=== PATIENT | female | born 1955 | race Caucasian/White ===

== ENCOUNTER 2022-11-27 08:00 | Outpatient (OUT) | payer MEDICARE, BC, SELFPAY ==
[2022-11-27 10:23] LABS: Basophils Absolute Auto 0.1 10^3/uL (0.0-0.1); Basophils Percent Auto 1.1 % (0.2-2.0); Eosinophils Absolute Auto 0.2 10^3/uL (0.0-0.7); Eosinophils Percent Auto 3.3 % (0.9-7.0); Hemoglobin 12.1 g/dL (12.0-16.0); Lymphocytes Absolute Auto 2.1 10^3/uL (1.2-3.8); Lymphocytes Percent Auto 46.9 % (20.5-60.0); Mean Corpuscular Hemoglobin 22.3 pg (26.7-34.0); Mean Platelet Volume 9.8 fL (9.5-13.5); Monocytes Absolute Auto 0.4 10^3/uL (0.3-0.8); Monocytes Percent Auto 8.2 % (1.7-12.0); Neutrophils Absolute Auto 1.8 10^3/uL (1.4-6.5); Neutrophils Percent Auto 40.5 % (43.0-75.0); Platelet Count 229 10^3/uL (150-450); Red Blood Count 5.42 10^6/uL (4.20-5.40); Red Cell Distribution Width 15.5 % (11.0-15.0); White Blood Count 4.5 10^3/uL (4.0-11.0)
[2022-11-27 11:37] LABS: Free T4 0.97 ng/dL (0.76-1.46)
[2022-11-27 11:38] LABS: Alanine Aminotransferase 24 U/L (14-59); Albumin Globulin Ratio 1.4; Albumin Level 4.2 g/dL (3.4-5.0); Alkaline Phosphatase 59 U/L (46-116); Anion Gap 10.6; Aspartate Amino Transferase 15 U/L (15-37); BUN Creatinine Ratio 26.6; Bilirubin Total 0.6 mg/dL (0.2-1.0); Calcium 9.1 mg/dL (8.5-10.1); Carbon Dioxide 27.6 mmol/L (21.0-32.0); Chloride 106 mmol/L (98-107); Chol HDL Ratio 2.2; Cholesterol 171 mg/dL (<=200); Estimated GFR (African America >60 (>=60); Estimated GFR (Non-African Ame 59 (>=60); Free T3 2.37 pg/mL (2.18-3.98); Globulin 3.1 g/dL; Glucose 96 mg/dL (74-106); HDL Cholesterol 77 mg/dL (40-60); Phosphorus 3.7 mg/dL (2.6-4.7); Potassium 4.2 mmol/L (3.5-5.1); Sodium 140 mmol/L (136-145); Thyroid Stimulating Hormone 1.662 uIU/mL (0.358-3.740); Total Protein 7.3 g/dL (6.4-8.2); Triglycerides 72 mg/dL (<=150); VLDL CHOLESTEROL 14.4 mg/dL
== END 2022-11-27 08:12 ==
DX: R00.2 Palpitations (principal); I34.1 Nonrheumatic mitral (valve) prolapse; R06.02 Shortness of breath; E78.2 Mixed hyperlipidemia
CPT/HCPCS: 36415; 80053; 80061; 83735; 84100; 84439; 84443; 84481; 85025

== ENCOUNTER 2024-03-14 15:09 | Outpatient (OUT) | payer MEDICARE, BC, SELFPAY | END 2024-03-14 15:10 | disposition home or self-care (01) | LOC: PST 15:10 | PROVIDERS: Visit Provider Surgery | DX: Z01.818 Encounter for other preprocedural examination (principal); Z12.11 Encounter for screening for malignant neoplasm of colon ==

== ENCOUNTER 2024-03-29 08:47 | Day surgery (SDC) | payer MEDICARE, BC, SELFPAY ==
--- NOTE | 2024-03-29 | OP_ITS ---
OPERATION DATE: 03/29/2024 PREOPERATIVE DIAGNOSIS: Colorectal screening. POSTOPERATIVE DIAGNOSIS: Redundant colon with spasm. PROCEDURE: Colonoscopy to cecum. SURGEON: Magdaleno Vang M.D. ANESTHESIA: Monitored anesthesia care. ESTIMATED BLOOD LOSS: Zero. INDICATIONS AND CONSENT: Patient is a 68-year-old female presents for colorectal screening. Indications, risks, benefits, alternatives of proceeding with colonoscopy were explained extensively to the patient, including the risks of bleeding, colon perforation or anesthetic complications. All of her questions were answered. Informed consent was obtained. PROCEDURE: Patient brought to the operating room, placed in the left lateral decubitus position. Monitored anesthesia care was provided. Rectal exam was performed which showed no masses or blood. Scope was inserted into the anal canal. Under direct visualization was advanced. With the aid of abdominal compression, it was able to be advanced to the cecum where cecal markings were clearly identified. There was noted to be redundancy, looping of the colon in the sigmoid. There was noted to be a good prep. Upon withdrawal of the scope, mucosal surfaces were carefully examined. There were no mass lesions or polyps. No inflammatory changes or ulcerations. No significant diverticulosis. The scope was retroflexed in the anal canal. There was no significant hemorrhoidal disease. Scope was then withdrawn. Patient tolerated procedure well, was sent to recovery room in good condition. Follow up colonoscopy for screening should be in 10 years, if patient is in good health. CC: Maryjo Akhtar
[2024-03-29 08:55] VITALS: BP 129/86; PULSE 84; TEMP 36.3; O2SAT 97; BMI 29.4
--- OUTSIDE RECORDS SUMMARY | 2024-03-29 09:00 | XMS_ITS | CCD ---
Author Organization [facility] Care Team Providers Care Ship'S Pilot Name Role Phone MISC, DR BENAVIDES Primary Care Unavailable REQUEST, DR NONE LISTED Attending Unavaila ble REQUEST, NONE LISTED Consulting Unavaila ble REQUEST, NONE LISTED Admitting Unavaila ble MISC, DOCTOR Attending Unavailable MISC, DR BENAVIDES Consulting Unavailable MISC, DR BENAVIDES Primary Care Unavailable MISC, DOCTOR Admitting Unavailable MISC, DR BENAVIDES Consulting Unavailable MISC, DR BENAVIDES Primary Care Unavailable MISC, DR BENAVIDES Admitting Unavailable MISC, DOCTOR Attending Unavailable GALLAGHER, AIME Isha Attending Unavailable GALLAGHER, AIME L Referring Unavailable GALLAGHER, AIME L Primary Care Unavailable TRELL CASTELLANOS Attending Unavailable GALLAGHER, AIME L Referring Unavailable GALLAGHER, AIME L Primary Care Unavailable WESLY, SHAHAB D Attending Unavailable GALLAGHER, AIME L Referring Unavailable GALLAGHER, AIME L Primary Care Unavailable WESLY, SHAHAB D Referring Unavailable GALLAGHER, AIME L Primary Care Unavailable GALLAGHER, AIME L Referring Unavailable GALLAGHER, AIME L Primary Care Unavailable WESLY, SHAHAB D Attending Unavailable WESLY, SHAHAB D Referring Unavailable GALLAGHER, AIME L Primary Care Unavailable GALLAGHER, AIME Referring Unavailable GALLAGHER, AIME Primary Care Unavailable Magdaleno FIORE Attending Unavailable GALLAGHER, AIME Primary Care Unavailable GALLAGHER, AIME L Primary Care Physician [phone] Allergies Allergy Classification Reported Allergen(s) Allergy Type Date of Onset Reaction(s) Facility (2 sources) Codeine; Translations: [CODEINE] Drug Allergy 6 [facility]ository (1 source) No Known Medication Allergies; Translations: [No Known Medication Allergies] Propensity to adverse reactions (disorder) [facility] Repository Medications Current Medications Medication Drug Class(es) Dates Sig (Normalized) Sig (Original) atorvastatin 20 mg oral tablet (1 source) HMG-CoA Reductase Inhibitor Start: 02-24-2024 take 1 tablet by mouth once daily Lipitor 20 mg Tab 20 mg = 1 tab(s), Oral, Daily, Refills(s) 0 Start Date: 02/24/24 Status: Ordered Co Q-10 100 mg oral capsule (1 source) Start: 02-24-2024 take 1 capsule by mouth once daily Co Q-10 100 mg oral capsule 100 mg = 1 cap(s), Oral, Daily, Refills(s) 0 Start Date: 02/24/24 Status: Ordered Multi Vitamin+ (1 source) Start: 02-24-2024 take 1 tablet by mouth once daily Multi Vitamin+ 1 tab(s), Oral, Daily, Refill(s) 0 Start Date: 02/24/24 Status: Ordered Problems Problem Classification Problem Date Documented Da te Episodic/Chronic Cardiac dysrhythmias (2 sources) Palpitations; Translations: [Palpitations] Onset: 09-16-2018 Episodic Diabetes mellitus without complication (1 source) Hyperglycemia, unspecified; Translations: [HYPERGLYCEMIA UNSPECIFIED] Onset: 12-08-2021 Episodic Disorders of lipid metabolism (8 sources) Other hyperlipidemia; Translations: [Mixed hyperlipidemia] Onset: 03-24-2016 Chronic Heart valve disorders (2 sources) Nonrheumatic aortic (valve) stenosis; Translations: [Non-rheumatic mitral valve prolapse] Onset: 03-24-2016 02-24-2024 Chronic Malaise and fatigue (1 source) Other fatigue; Translations: [Other fatigue] Onset: 12-23-2023 Episodic Other bone disease and musculoskeletal deformities (2 sources) Other specified disorders of bone density and structure, unspecified site; Translations: [Other specified disorders of bone density and structure, unspecified site] Onset: 01-06-2024 Episodic Other bone disease and musculoskeletal deformities (1 source) Osteopenia 02-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 Other lower respiratory disease (4 sources) Shortness of breath; Translations: [SHORTNESS OF BREATH] Onset: 12-11-2021 Episodic Other lower respiratory disease (1 source) Shortness of breath Onset: 12-23-2023 Episodic Other nutritional; endocrine; and metabolic disorders (1 source) Body mass index 30+ - obesity 02-29-2024 Chronic Other nutritional; endocrine; and metabolic disorders (1 source) 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 Other screening for suspected conditions (not mental disorders or infectious disease) (5 sources) Encounter for screening for osteoporosis; Translations: [Encounter for screening for malignant neoplasm of colon] Onset: 11-26-2023 Episodic Other skin disorders (1 source) Melanosis 02-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 Residual codes; unclassified (1 source) Other specified postprocedural states; Translations: [OTH SPECIFIED POSTPROCEDURAL STATES] Onset: 12-16-2021 Episodic Residual codes; unclassified (2 sources) Asymptomatic menopausal state; Translations: [Asymptomatic menopausal state] Onset: 01-06-2024 Episodic Unclassified (1 source) Annual Exam Onset: 01-06-2024 Unclassified (1 source) Patient encounter status 02-29-2024 Results Test Name Value Interpretation Reference Range Facility DEXA SCAN CENTRAL SKELETALon 02-15-2024 DEXA SCAN CENTRAL SKELETAL DEXA SCAN CENTRAL SKELETAL Bone densitometry: HISTORY: Postmenopausal osteoporosis screening. L1-L4 T score is -1.2 and 0.2. Left neck T score is -0.4 and Z score is 1.0. Right 4 T score is -0.5 and Z score 0.9. 10 year probability of osteoporotic fractures 7.6%. 10 year probability of hip fracture 0.5%. Procedure: Bone density scan was performed in the regions indicated in the accompanying documents. Bone mineral density values for each site expressed in grams per square centimeter and shown on accompanying graphs and tables. These values are compared to the World Health Organization standards that state that bone mineral density values at or below -2.5 standard deviations (T score -2.5) standard deviations from a young adult ethnicity-matched population are indicative of osteoporosis, and bone mineral density values at or below -1.0 standard deviations (T score -1.0) from a young adult ethnicity-matched population are indicative of osteopenia. The comparison of this patient's values to the world health organization standards is given in the impression. When possible, this study has been compared to any prior DEXA study. Full color report will be mailed separately. Impression: 1. Osteopenia. The exam is considered to be osteopenic by the National Osteoporosis Foundation guidelines. Recommend consideration for initiation of therapy. The current National Osteoporosis Foundation guide recommends treating patients with FRAX ten year risk scores of greater than or equal to 3% for hip fracture or greater than or equal to 20% for major osteoporotic fracture, to reduce their fracture risk. Finalized by Jayesh Day MD on 02/15/2024 10:[address] [facility] CBC AND AUTO DIFFon 01-25-20 24 ABSOLUTE BASOPHIL 0.1 X10E9/L Normal 0.0-0.2 [facility] Comment on above: Performed By: #### C ANGELINA CMP, 81963-9, 3016-3 #### [facility] ([id number]) [address], [address] [place] [address] ABSOLUTE NEUTROPHIL 1.2 X10E9/L Low 1.5-6.6 [facility] Comment on above: Performed By: #### Keanu ALFARO CMP, 72801-1, 6-3 #### [facility] ([id number]) [address], [address] [place] [address] Basophils/100 WBC (Bld) 1.3 % Normal [facility] Comment on above: Performed By: #### C ANGELINA CMP, 80056-0, 6-3 #### [facility] ([id number]) [address], [address] [place] [address] Eosinophils (Bld) [#/Vol] 0.1 10*3/uL Normal 0.0-0.[address] [facility] Comment on above: Performed By: #### C ANGELINA CMP, 29457-7, 6-3 #### [facility] ([id number]) [address], [address] [place] [address] Eosinophils/100 WBC (Bld) 3.0 % Normal [facility] Comment on above: Performed By: #### C ANGELINA CMP, 03650-3, 6-3 #### [facility] ([id number]) [address], [address] [place] [address] Erythrocyte distribution width (RBC) [Ratio] 15.6 % High 11.5-15.[address] [facility] Comment on above: Performed By: #### Keanu ALFARO [facility], 96434-9, 3015-3 #### [facility] ([id number]) [address], [address] [place] [address] Hematocrit (Bld) [Volume fraction] 39.4 % Normal 35-[address] [facility] Comment on above: Performed By: #### Keanu ALFARO [facility], 72609-0, 3015-3 #### [facility] ([id number]) [address], [address] [place] [address] Hemoglobin (Bld) [Mass/Vol] 12.3 g/dL Normal 11.7-15.[address] [facility] Comment on above: Performed By: #### Keanu ALFARO CMP, 90131-1, 3015-3 #### [facility] ([id number]) [address], [address] [place] [address] HYPOCHROMIA 2+ Abnormal NONE [facility] Comment on above: Performed By: #### Keanu ALFARO [facility], , 3015-3 #### [facility] ([id number]) [address] [place] [address] Lymphocytes (Bld) [#/Vol] 2.2 10*3/uL Normal 1.0-3.[address] [facility] Comment on above: Performed By: #### Keanu ALFARO CMP, 36273-0, 3015-3 #### [facility] ([id number]) [address], [address] [place] [address] Lymphocytes/100 WBC (Bld) 56.3 % Normal [facility] Comment on above: Performed By: #### Keanu ALFARO CMP, 96889-4, 3015-3 #### [facility] ([id number]) [address], [address] [place] [address] MCH (RBC) [Entitic mass] 22.1 pg Low 27-[address] [facility] Comment on above: Performed By: #### C BRITANY ALFARO, , 3015- #### [facility] ([id number]) [address], [address] [place] [address] MCHC (RBC) [Mass/Vol] 31.3 g/dL Low 32-36 [facility] Comment on above: Performed By: #### C ANGELINA CMP, , 3015-3 #### [facility] ([id number]) [address] [place] [address] MCV (RBC) [Entitic vol] 71 fL Low 80-[address] [facility] Comment on above: Performed By: #### Keanu ALFARO CMP, , 3015-07 #### [facility] ([id number]) [address], [address] [place] [address] Monocytes (Bld) [#/Vol] 0.4 10*3/uL Normal 0-0.[address] [facility] Comment on above: Performed By: #### Keanu ALFARO CMP, , 3015- #### [facility] ([id number]) [address] [place] [address] Monocytes/100 WBC (Bld) 9.1 % Normal [facility] Comment on above: Performed By: #### Keanu ALFARO CMP, , 3015- #### [facility] ([id number]) [address] [place] [address] Neutrophils/100 WBC (Bld) 30.3 % Normal [facility] Comment on above: Performed By: #### C ANGELINA CMP, , 3 #### [facility] ([id number]) [address] [place] [address] Platelet mean volume (Bld) [Entitic vol] 9.1 fL Normal 7-[address] [facility] Comment on above: Performed By: #### C BCA, CMP, 54946-4, 3016-3 #### [facility] ([id number]) [address] [place] [address] Platelets (Bld) [#/Vol] 221 10*3/uL Normal 150-[address] [facility] Comment on above: Performed By: #### C BCA, CMP, 26490-5, 6-3 #### [facility] ([id number]) [address] [place] [address] RBC COUNT 5.58 X10E12/L High 3.80-5.[address] [facility] Comment on above: Performed By: #### C BCA, CMP, 51600-3, 6-3 #### [facility] ([id number]) [address] [place] [address] WBC (Bld) [#/Vol] 3.9 10*3/uL Low 4.0-11.0 [facility] Comment on above: Performed By: #### C BCA, CMP, 35459-9, 3015-3 #### [facility] ([id number]) [address] [place] [address] COMPREHENSIVE METABOLIC PANE Aly 01-25-2024 Albumin [Mass/Vol] 4.5 g/dL Normal 3.2-5.3 [facility] Comment on above: Performed By: #### C BCA, CMP, 72853-2, 6-3 #### [facility] ([id number]) [address], [address] [place] [address] ALP [Catalytic activity/Vol] 56 U/L Normal 39-[address] [facility] Comment on above: Performed By: #### C BCA, CMP, 94347-6, 3016-3 #### [facility] ([id number]) [address], [address] [place] [address] ALT [Catalytic activity/Vol] 20 U/L Normal 0-[address] [facility] Comment on above: Performed By: #### C BCA, CMP, 24362-1, 3016-3 #### [facility] ([id number]) [address] [place] [address] Anion gap [Moles/Vol] 12 mmol/L Normal 5-15 [facility] Comment on above: Performed By: #### C BCA, CMP, 82125-8, 6-3 #### [facility] ([id number]) [address] [place] [address] AST [Catalytic activity/Vol] 24 U/L Normal 0-[address] [facility] Comment on above: Performed By: #### C BCA, CMP, 72384-3, 6-3 #### [facility] ([id number]) [address] [place] [address] Bilirubin [Mass/Vol] 0.8 mg/dL Normal 0.3-1.2 [facility] Comment on above: Performed By: #### C BCA, CMP, 93291-5, 6-3 #### [facility] ([id number]) [address] [place] [address] Calcium [Mass/Vol] 10.3 mg/dL Normal 8.5-10.5 [facility] Comment on above: Performed By: #### C BCA, CMP, 16935-3, 6-3 #### [facility] ([id number]) [address] [place] [address] Chloride [Moles/Vol] 104 mmol/L Normal 98-109 [facility] Comment on above: Performed By: #### C BCA, CMP, 88072-0, 6-3 #### [facility] ([id number]) [address] [place] [address] CO2 [Moles/Vol] 25 mmol/L Normal 22-[address] [facility] Comment on above: Performed By: #### C BRITANY ALFARO, 27869-5, 3015-3 #### [facility] ([id number]) [address], [facility] [address] [place] [address] Creatinine [Mass/Vol] 1.10 mg/dL High 0.40-1.00 [facility] Comment on above: Result Comment: METH OD TRACEABLE TO IDMS STANDARD Performed By: #### C BRITANY ALFARO, 05815-4, 3015-3 #### [facility] ([id number]) [address] [address] [place] [address] GFR/1.73 sq M.predicted among non-blacks MDRD (S/P/Bld) [Vol rate/Area] 54 mL/min/{1.73_m2} Low >[address] [facility] Comment on above: Result Comment: Reported eGFR is based on the CKD-EPI 2020 equation that does not use a race coefficient. Performed By: #### C BRITANY ALFARO, 59324-6, 3015-3 #### [facility] ([id number]) [address] [address] [place] [address] Glucose [Mass/Vol] 87 mg/dL Normal 65-99 [facility] Comment on above: Performed By: #### C BRITANY ALFARO, 79057-2, 3015-3 #### [facility] ([id number]) [address] [address] [place] [address] Potassium [Moles/Vol] 4.4 mmol/L Normal 3.5-5.0 [facility] Comment on above: Performed By: #### C BRITANY ALFARO, 30199-6, 3015-3 #### [facility] ([id number]) [address] [address] [place] [address] Protein [Mass/Vol] 7.2 g/dL Normal 6.0-8.0 [facility] Comment on above: Performed By: #### C ANGELINA, CMP, 29141-1, 3016-3 #### [facility] ([id number]) [address] [place] [address] Sodium [Moles/Vol] 141 mmol/L Normal 134-146 [facility] Comment on above: Performed By: #### Keanu ALFARO, CMP, 36576-9, 6-3 #### [facility] ([id number]) [address] [place] [address] Urea nitrogen [Mass/Vol] 22 mg/dL Normal 5-[address] [facility] Comment on above: Performed By: #### Keanu ALFARO, CMP, 59848-3, 3016-3 #### [facility] ([id number]) [address] [place] [address] Lipid 1996 panelon 4 Cholesterol [Mass/Vol] 177 mg/dL Normal 150-[address] [facility] Comment on above: Performed By: #### Keanu ALFARO CMP, 43773-9, 3016-3 #### [facility] ([id number]) [address] [place] [address] Cholesterol in HDL [Mass/Vol] 68 mg/dL Normal >[address] [facility] Comment on above: Result Comment: HDL <40 mg/dL - High Risk HDL > or = 40mg/dL- Desirable HDL >60 mg/dL - Negative Risk Performed By: #### C BCA, CMP, 37726-9, 6-3 #### [facility] ([id number]) [address] [place] [address] Cholesterol in LDL [Mass/Vol] 92 mg/dL Normal <[address] [facility] Comment on above: Result Comment: LDL <100 mg/dL - Desirable LDL >160 mg/dL - High Risk Performed By: #### C ANGELINA, CMP, 55920-0, 3016-3 #### [facility] ([id number]) [address] [place] [address] Cholesterol in VLDL [Mass/Vol] 17 mg/dL Normal 0-[address] [facility] Comment on above: Performed By: #### Keanu ALFARO, CMP, 06306-9, 3016-3 #### [facility] ([id number]) [address] [place] [address] CHOLESTEROL:HDL 2.6 Normal 1.0-5.[address] [facility] Comment on above: Performed By: #### Keanu ALFARO, CMP, 96605-2, 3016-3 #### [facility] ([id number]) [address] [place] [address] Triglyceride [Mass/Vol] 83 mg/dL Normal 27-[address] [facility] Comment on above: Performed By: #### Keanu ALFARO, CMP, 84698-8, 3016-3 #### [facility] ([id number]) [address] [place] [address] TSH Qnon 01-25-2024 TSH 2.22 uIU/mL Normal 0.49-4.[address] [facility] Comment on above: Performed By: #### Keanu BCA, CMP, 86348-2, 3016-3 #### [facility] ([id number]) [address] [place] [address] MAMM SCREENING BILATERAL W C termite control representative 11-29-2023 MAMM SCREENING BILATERAL W CAD MAMM SCREENING BILATERAL W CAD EXAM: MAMM SCREENING BILATERAL W CAD, 11/26/2023 3:01 PM CLINICAL INDICATIONS: Screening, Encounter for screening mammogram for malignant neoplasm of breast COMPARISON: 11/21/2022 TECHNIQUE: Bilateral digital tomosynthesis MLO and CC views of the breasts were obtained, with creation of synthetic 2D views. Computer aided detection was utilized. FINDINGS: There are scattered areas of fibroglandular density. Postprocedural changes in the right breast. There are no suspicious masses, calcifications, or areas of architectural distortion. IMPRESSION: No mammographic evidence of malignancy. BI-RADS: BI-RADS 2 - Benign Recommendation: Routine screening mammogram in 1 year. Finalized by George Car MD on 11/29/2023 12:58 PM 2 b MAMM [address] [facility] ALKALINE PHOSPHAon 2 ALP [Catalytic activity/Vol] 56 U/L Normal 46-116 [facility] Comment on above: Performed By: #### L IPID, ALP #### [facility] [address] [place] [address] Dr. Onur Carcamo LIPID PROFILEon 12-11-2021 CHOL-HDL RATIO NORM SEE BELOW Normal [facility] Comment on above: Result Comment: 3.3 - 4.4 LOW RISK 4.4 - 7.1 AVERAGE RISK 7.1 - 11.0 MODERATE RISK >11.0 HIGH RISK Performed By: #### L IPID, ALP #### [facility] [address] [place] [address] Dr. Onur Carcamo Cholesterol [Mass/Vol] 191 mg/dL Normal <=200 [facility] Comment on above: Performed By: #### L IPID, ALP #### [facility] [address] [address] [address] Onur Carcamo Cholesterol in HDL [Mass/Vol] 65 mg/dL Critically high 40-60 [facility] Comment on above: Performed By: #### L IPID, ALP #### [facility] [address] [place] [address] Dr. Onur Carcamo Cholesterol in LDL [Mass/Vol] 106.0 mg/dL Normal [facility] Comment on above: Performed By: #### L IPID, ALP #### [facility] [address] [address] [address] Onur Carcamo Cholesterol.total/Cho lesterol in HDL [Mass ratio] 2.9 {ratio} Normal [facility] Comment on above: Performed By: #### L IPID, ALP #### [facility] [address] [address] [address] Onur Carcamo HDL NORMAL > or = 60 mg/dl - LOW CARDIOVASCULAR RISK <40 mg/dl - HIGH CARDIOVASCULAR RISK Normal [facility] Comment on above: Performed By: #### L IPID, ALP #### [facility] [address] [address] [address] Onur Carcamo LDL CALC NORMAL SEE BELOW Normal [facility] Comment on above: Result Comment: <100 mg/dl OPTIMAL 100 - 129 mg/dl NEAR OR ABOVE OPTIMAL 130 - 159 mg/dl BORDERLINE HIGH 160 - 189 mg/dl HIGH >190 mg/dl VERY HIGH Performed By: #### L IPID, ALP #### [facility] [address] [place] [address] Dr. Onur Carcamo Triglyceride [Mass/Vol] 98 mg/dL Normal <=150 [facility] Comment on above: Performed By: #### L IPID, ALP #### [facility] [address] [place] [address] Dr. Onur Carcamo VLDL CALC 19.6 mg/dL Normal [facility] Comment on above: Performed By: #### L IPID, ALP #### [facility] [address] [place] [address] Dr. Onur Carcamo CBC AUTO DIFFon 12-04-2021 BASO # 0.1 103/ul Normal 0.0-0.1 [facility] Comment on above: Performed By: #### C BC #### [facility] [address] [place] [address] Dr. Onur Carcamo Basophils/100 WBC (Bld) 1.1 % Normal 0.2-2.0 [facility] Comment on above: Performed By: #### C BC #### [facility] [address] [place] [address] Dr. Onur Carcamo EO # 0.2 103/ul Normal 0.0-0.7 [facility] Comment on above: Performed By: #### C BC #### [facility] [address] [place] [address] Dr. Onur Carcamo Eosinophils/100 WBC (Bld) 3.3 % Normal 0.9-7.0 [facility] Comment on above: Performed By: #### C BC #### [facility] [address] [place] [address] Dr. Onur Carcamo Erythrocyte distribution width (RBC) [Ratio] 15.3 % Critically high 11.0-15.0 [facility] Comment on above: Performed By: #### C BC #### [facility] [address] [place] [address] Dr. Onur Carcamo Hematocrit (Bld) [Volume fraction] 41.8 % Normal 36.0-48.0 [facility] Comment on above: Performed By: #### C BC #### [facility] [address] [place] [address] Dr. Onur Carcamo Hemoglobin (Bld) [Mass/Vol] 12.8 g/dL Normal 12.0-16.0 [facility] Comment on above: Performed By: #### C BC #### [facility] [address] [place] [address] Dr. Onur Carcamo IG # 0.00 10e3/ul Normal 0.00-0.03 [facility] Comment on above: Performed By: #### C BC #### [facility] [address] [place] [address] Dr. Onur Carcamo IG % 0.0 % Normal 0.0-0.5 [facility] Comment on above: Performed By: #### C BC #### [facility] [address] [place] [address] Dr. Onur Carcamo LYMPH # 2.5 103/ul Normal 1.2-3.8 [facility] Comment on above: Performed By: #### C BC #### [facility] [address] [place] [address] Dr. Onur Carcamo Lymphocytes/100 WBC (Bld) 55.5 % Normal 20.5-60.0 [facility] Comment on above: Performed By: #### C BC #### [facility] [address] [place] [address] Dr. Onur Carcamo MANUAL DIFF REQ NO Normal [facility] Comment on above: Performed By: #### C BC #### [facility] [address] [place] [address] Dr. Onur Carcamo MCH (RBC) [Entitic mass] 22.2 pg Critically low 26.7-34.0 [facility] Comment on above: Performed By: #### C BC #### [facility] [address] [place] [address] Dr. Onur Carcamo MCHC (RBC) [Mass/Vol] 30.6 g/dL Normal 29.9-35.2 [facility] Comment on above: Performed By: #### C BC #### [facility] [address] [place] [address] Dr. Onur Carcamo MCV (RBC) [Entitic vol] 72.6 fL Critically low 81.0-99.0 [facility] Comment on above: Performed By: #### C BC #### [facility] [address] [place] [address] Dr. Onur Carcamo MONO # 0.4 103/ul Normal 0.3-0.8 [facility] Comment on above: Performed By: #### C BC #### [facility] [address] [place] [address] Dr. Onur Carcamo Monocytes/100 WBC (Bld) 9.6 % Normal 1.7-12.0 [facility] Comment on above: Performed By: #### C BC #### [facility] [address] [place] [address] Dr. Onur Carcamo NEUT # 1.4 103/ul Normal 1.4-6.5 [facility] Comment on above: Performed By: #### C BC #### [facility] [address] [place] [address] Dr. Onur Carcamo Neutrophils/100 WBC (Bld) 30.5 % Critically low 43.0-75.0 [facility] Comment on above: Performed By: #### C BC #### [facility] [address] [address] [address] Onur Carcamo Platelet mean volume (Bld) [Entitic vol] 9.5 fL Normal 9.5-13.5 [facility] Comment on above: Performed By: #### C BC #### [facility] [address] [place] [address] Dr. Onur Carcamo PLT 252 103/ul Normal 150-450 [facility] Comment on above: Performed By: #### C BC #### [facility] [address] [place] [address] Dr. Onur Carcamo RBC 5.76 106/ul Critically high 4.20-5.40 [facility] Comment on above: Performed By: #### C BC #### [facility] [address] [place] [address] Dr. Onur Carcamo WBC 4.6 103/ul Normal 4.0-11.0 [facility] Comment on above: Performed By: #### C BC #### [facility] [address] [place] [address] Dr. Onur Carcamo ROSINA - TSHon 12-04-2021 TSH 2.223 uIU/mL Normal 0.358-3.740 [facility] Comment on above: Performed By: #### D ATTSH #### [facility] [address] [place] [address] Dr. Onur Carcamo TSH RANGE SEE BELOW Normal [facility] Comment on above: Result Comment: <0.3 4 UIU/ml HYPERTHYROID 0.34-5.60 UIU/ml EUTHYROID >5.60 UIU/ml HYPOTHYROID Performed By: #### D ATTSH #### [facility] [address] [place] [address] Dr. Onur Carcamo GLYCOHEMOGLOBIN A1Con 2021 ADA RECOMMENDATION SEE BELOW Normal [facility] Comment on above: Result Comment: ADA RECOMMENDED LIMIT 4.0 - 6.0 ADA THERAPEUTIC TARGET < 7.0 ACTION SUGGESTED > 7.0 Performed By: #### D ATA1C #### [facility] [address] [address] [address] Onur Carcamo Glucose [Mass/Vol] 120 mg/dL Normal [facility] Comment on above: Performed By: #### D ATA1C #### [facility] [address] [address] [address] Onur Carcamo HbA1c (Bld) [Mass fraction] 5.8 % Normal 4.5-6.2 [facility] Comment on above: Performed By: #### D ATA1C #### [facility] [address] [address] [address] Onur Carcamo PROF 14(COMP METB)on 022 Albumin [Mass/Vol] 4.2 g/dL Normal 3.4-5.0 [facility] Comment on above: Performed By: #### C MP #### [facility] [address] [place] [address] Dr. Onur Carcamo Albumin/Globulin [Mass ratio] 1.3 {ratio} Normal [facility] Comment on above: Performed By: #### C MP #### [facility] [address] [place] [address] Dr. Onur Carcamo ALP [Catalytic activity/Vol] 63 U/L Normal 46-116 [facility] Comment on above: Performed By: #### C MP #### [facility] [address] [place] [address] Dr. Onur Carcamo ALT [Catalytic activity/Vol] 21 U/L Normal 14-59 [facility] Comment on above: Performed By: #### C MP #### [facility] [address] [place] [address] Dr. Onur Carcamo Anion gap [Moles/Vol] 11.9 mmol/L Normal [facility] Comment on above: Performed By: #### C MP #### [facility] [address] [place] [address] Dr. Onur Carcamo AST [Catalytic activity/Vol] 13 U/L Critically low 15-37 [facility] Comment on above: Performed By: #### C MP #### [facility] [address] [address] [address] Onur Carcamo Bilirubin [Mass/Vol] 0.8 mg/dL Normal 0.2-1.0 [facility] Comment on above: Performed By: #### C MP #### [facility] [address] [address] [address] Onur Carcamo Calcium [Mass/Vol] 9.4 mg/dL Normal 8.5-10.1 [facility] Comment on above: Performed By: #### C MP #### [facility] [address] [address] [address] Onur Carcamo Chloride [Moles/Vol] 105 mmol/L Normal 98-107 [facility] Comment on above: Performed By: #### C MP #### [facility] [address] [place] [address] Dr. Onur Carcamo CO2 [Moles/Vol] 27.5 mmol/L Normal 21.0-32.0 [facility] Comment on above: Performed By: #### C MP #### [facility] [address] [address] [address] Onur Carcamo Creatinine [Mass/Vol] 1.07 mg/dL Critically high 0.55-1.02 [facility] Comment on above: Performed By: #### C MP #### [facility] [address] [address] [address] Onur Carcamo EGFR-AF [place] >60 Normal >=60 [facility] Comment on above: Performed By: #### C MP #### [facility] [address] [address] [address] Onur Carcamo EGFR-NON AF [place] 51 mL/min/1.73m2 Critically low >=60 [facility] Comment on above: Performed By: #### C MP #### [facility] [address] [address] [address] Onur Carcamo Globulin (S) [Mass/Vol] 3.2 g/dL Normal [facility] Comment on above: Performed By: #### C MP #### [facility] [address] [address] [address] Onur Carcamo Glucose [Mass/Vol] 94 mg/dL Normal 74-106 [facility] Comment on above: Performed By: #### C MP #### [facility] [address] [address] [address] Onur Carcamo Potassium [Moles/Vol] 4.4 mmol/L Normal 3.5-5.1 [facility] Comment on above: Performed By: #### C MP #### [facility] [address] [address] [address] Onur Carcamo Protein [Mass/Vol] 7.4 g/dL Normal 6.4-8.2 [facility] Comment on above: Performed By: #### C MP #### [facility] [address] [address] [address] Onur Carcamo Sodium [Moles/Vol] 140 mmol/L Normal 136-145 [facility] Comment on above: Performed By: #### C MP #### [facility] [address] [address] [address] Onur Carcamo Urea nitrogen [Mass/Vol] 21.0 mg/dL Critically high 7.0-18.0 [facility] Comment on above: Performed By: #### C MP #### [facility] [address] [address] [address] Onur Carcamo Urea nitrogen/Creatinine [Mass ratio] 19.6 mg/mg Normal [facility] Comment on above: Performed By: #### C MP #### [facility] [address] [address] [address] Onur Carcamo Vital Signs Date Time Vital Sign Value Performing Clinician Faci sparkle 02-29-2024 10:35-0400 Blood Pressure Location Magdaleno FIORE [facility] [place] 02-29-2024 10:35-0400 Diastolic blood pressure 90 mm[Hg] Magdaleno FIORE [facility] [place] 02-29-2024 10:35-0400 Heart rate 78 /min Magdaleno FIORE [facility] 02-29-2024 10:35-0400 Respiratory rate 16 /min Magdaleno FI[facility] 02-29-2024 [id number] Systolic blood pressure 156 mm[Hg] Magdaleno FIORE [facility] Encounters Encounter Date Encounter Type Care Provider Facility Start: 02-29-2024 End: 02-29-2024 ambulatory AIME FELDERE Facility:[facility] Start: 02-29-2024 End: 02-29-2024 Patient encounter procedure Magdaleno FIORE [facility] Start: 02-17-2024 ambulatory AIME GALLAGHER Facility[facility] Start: 02-14-2024 End: 02-14-2024 ambulatory [facility] Start: 01-25-2024 End: 01-25-2024 ambulatory [facility] Start: 01-07-2024 End: 01-07-2024 ambulatory TRELL CASTELLANOS Not Available Start: 01-06-2024 End: 01-06-2024 ambulatory [facility] Start: 01-06-2024 Encounter for genera l adult medical examination without abnormal findings [facility] Start: 12-23-2023 End: 12-23-2023 ambulatory [facility] Start: 11-26-2023 End: 11-26-2023 ambulatory [facility] Start: 12-11-2021 End: 12-12-[address] DOCTOR MENENDEZ Facility:[facility] Start: 12-04-2021 End: 12-05-[address] DOCTOR MENENDEZ Facility:[facility] Procedures Date Procedure Procedure Detail Performing Clinician Start: 12-23-2023 Follow-up visit Follow-up SHAHAB JARRELL Start: 03-09-2012 Colonoscopy Magdalneo STEPHENS Biopsy of breast Magdaleno Vieira Repair of mitral valve Dedrick marcial FIORE Immunizations Immunization Date Immunization Notes Care Provider Fa cili 03-05-2023 influenza virus vaccine, unspecified formulation Magdaleno FIORE [facility] 03-04-2022 SARS-CoV-2 (COVID-19 ) [id number].[id number] Magdaleno FIORE [facility] 12-01-2021 SARS-CoV-2 mRNA (zikqwbrrrok-urpb-jgwgd se) vaccine Magdaleno [facility] 02-20-2021 SARS-CoV-2 (COVID-19 ) mRNA BNT-162b2 vax Magdaleno [facility] Comment on above: Result Comment: 2023: [id number] 07-19-2020 SARS-CoV-2 (COVID-19 ) mRNA BNT-162b2 vax Magdaleno [facility] Comment on above: Result Comment: 2023: [id number] 06-28-2020 SARS-CoV-2 (COVID-19 ) mRNA BNT-162b2 vax Magdaleno [facility] Comment on above: Result Comment: 2023: [id number] Payers Date Payer Category Payer Medicare [id number] 1959 Self-pay 1960 Unknown [id number] 1954 Unknown [id number] 2.16.84 [id number] 1954 Unknown [id number] 2.16.84 [id number] 1954 Unknown [id number] 2.16.8 [id number] 1954 Unknown [id number] 2.16.84 [id number] 1954 Unknown [id number] 2.16.8 [id number] 1954 Unknown [id number] 2.16.8 [id number] 1954 Unknown [id number] 2.16.8 [id number] 1954 Unknown [id number] 2.16.8 [id number] 1954 Unknown [id number] 2.16.8 [id number] 1954 Unknown [id number] 2.16.8 [id number] Unknown [id number] 2.16.84 [id number] Social History Date Type Detail Facility Start: 02-29-2024 Tobacco smoking status Never s moked tobacco (finding) [facility] Tobacco smoking status Never [facility] Sex Assigned At Female [facility] Functional Status Date Assessment Result Facility 02-29-2024 Functional Status N/A [facility] Clinical Note 02-29-2024 Note Date & Type Note Facility 02-29-2024 Note [facility] Surgery Offi ce/Clinic Note Chief Complaint consultation for colonoscopy HPI Staff 68 year old female presents on consultation from Dr. Gallagher for screening colonoscopy. Last colonoscopy completed 02/2012 with melanosis, otherwise normal. Denies abdominal or rectal pain. No rectal bleeding. Reports long standing history of constipation. Denies nausea or vomiting. No unexplained weight loss. Father with history of colon cancer, diagnosed age 77. History of Present Illness 68 yo female with h/o hyperlipidemia, mitral valve repair; referred for colorectal screening; denies change in bms or blood in stools, no abd complaints; no previous abd operations, last colonoscopy 2011 wnl; no asa or NSAID use; no tobacco use; fmhx of colon cancer in patient's father, dx in his 70's, no fmhx of IBD. Review of Systems PHQ Score Initial Depression Screen Score: 0 SCORE ROS - Provider Constitutional: no fever, no sweats, no weight loss. Eyes: no glasses, no blurred vision, no visual loss. ENMT: no dentures, no hoarseness, no swallowing difficulties, no hearing loss, no ear infection(s), no nose bleeds. Cardiovascular: normal blood pressure, no chest pain, regular heartbeat, no heart murmur. Respiratory: no shortness of breath, no cough, no asthma, no wheezing. Gastrointestinal: no nausea, no vomiting, no diarrhea, no constipation, no blood in stool, no change in bowel habits, no abdominal pain, no hepatitis. Genitourinary: no kidney stones, no urine infection, no dysuria. Musculoskeletal: no pain, no weakness. Skin: no changing moles, no rash, no skin lumps. Neurologic: no seizures, no epilepsy, no headache. Psychiatric: no emotional or psychiatric problem. Heme/Lymph: no bleeding problems, no anemia, no blood clots, no transfusions. Allergy/Immunologic: no swollen lymph nodes/glands, no IV drug abuse. Other: Additional ROS info: Except as noted in the above Review of Systems and in the History of Present Illness, all other systems have been reviewed and are negative or noncontributory. Physical Exam Vitals & Measurements HR: 78(Peripheral) RR: 16 BP: 156/90 HT: 62 in HT: 157.5 cm WT: 75.2 kg WT: 165.44 lb BMI: 30.31 HEENT: normal conjunctiva, sclera clear, no scleral icterus, EOM intact, PERRLA, oral mucosa moist without lesions. Neck: trachea midline, no mass, symmetric, no thyromegaly or nodules, no adenopathy Respiratory: lungs CTA, respirations non labored. Cardiovascular: regular rate and rhythm, no murmur, no pedal edema or varicosities. Gastrointestinal: obese, soft, non distended, no tenderness, no masses, no palpable hernias, diastasis recti no, no hepatosplenomegaly; normal bs Lymphatic: no cervical adenopathy, no supraclavicular adenopathy. Musculoskeletal: normal gait, digits and nails without infection, nodes, cyanosis, clubbing. Skin: no rashes, no lesions, no ulcers, no subcutaneous nodules, induration. Psychiatric/Neuro: oriented to time, place, person, judgement normal, affect appropriate for age, insight intact, no focal deficits. Tests: review of old records completed , Discussed surgical options, risks, and possible complications with patient. Assessment/Plan 1. Screening for malignant neoplasm of colon (Z12.11: Encounter for screening for malignant neoplasm of colon) plan colonoscopy under anesthesia, informed consent obtained. Follow-up No qualifying data available Problem List/Past Medical History Ongoing BMI 30.0-30.9,adult Melanosis Mixed hyperlipidemia Non-rheumatic mitral valve prolapse Obesity due to excess calories Osteopenia Screening for malignant neoplasm of colon Historical No qualifying data Procedure/Surgical History Colonoscopy (03/09/2012), Biopsy of breast, Repair of mitral valve. Medications Co Q-10 100 mg oral capsule, 100 mg= 1 cap(s), Oral, Daily Lipitor 20 mg Tab, 20 mg= 1 tab(s), Oral, Daily Multi Vitamin+, 1 tab(s), Oral, Daily Allergies No Known Allergies No Known Medication Allergies Social History Alcohol Current, Beer, Wine, Liquor, 1-2 times per week, 02/29/2024 Substance Abuse - Denies Substance Abuse, 02/29/2024 Tobacco Never (less than 100 in lifetime) Tobacco Use:. Never Smokeless Tobacco Use:., 02/29/2024 Family History Acute myocardial infarction: Mother. Diabetes mellitus type 2: Father. Parkinson disease: Brother. Primary malignant neoplasm of colon: Father. Stroke: Mother. Immunizations Vaccine Date Status Comments influenza virus vaccine, inactivated 03/05/2023 Recorded SARS-CoV-2 (COVID-19) [id number].[id number] 03/04/2022 Recorded SARSCoV2 mRNA(qzmiblwqw-rwur-tbvuml) vac 12/01/2021 Recorded SARS-CoV-2 (COVID-19) mRNA BNT-162b2 vax 02/20/2021 Recorded 2024-02-24: [id number] SARS-CoV-2 (COVID-19) mRNA BNT-162b2 vax 07/19/2020 Recorded 2024-02-24: [id number] SARS-CoV-2 (COVID-19) mRNA BNT-162b2 vax 06/28/2020 Recorded 2024-02-24: [id number] [facility] Comment on above: Result Comment: Elec tronically Signed By: ADEBAYO THOMAS, Magdaleno Babb\Date and Time Signed: 02/29/24 11:15 EDT Evaluation + Plan note Note Date & Type Note Facility Evaluation + Plan note No data available for this section [facility] [place] [facility] Discharge instructions Note Date & Type Note Facility Hospital Discharge instructions No data available for this section [facility] [place] Progress note Note Date & Type Note Facility Progress note No data available for this section [facility] [place] Summary Purpose Family History No Family History Records FoundNo Family History Records FoundNo Family History Records FoundNo Family History Records FoundNo Family History Records Found No data available for this section Advance Directives No Advanced Directives Records FoundNo Advanced Directives Records FoundNo Advanced Directives Records FoundNo Advanced Directives Records FoundNo Advanced Directives Records Found Additional Source Comments INFORMATION SOURCE (unrecogn ized section and content) DATE CREATED AUTHOR 12/18/2021 [facility] DATE CREATED AUTHOR AUTHOR'S ORGANIZ ATION 01/08/2024 [facility] DATE CREATED AUTHOR AUTHOR'S ORGANIZ ATION 01/09/2024 [facility] DATE CREATED AUTHOR AUTHOR'S ORGANIZ ATION 02/16/2024 [facility] DATE CREATED AUTHOR AUTHOR'S ORGANIZ ATION 03/02/2024 [facility] Patient Care team informatio n (unrecognized section and content) Personnel Name: AIME GALLAGHER Address: Address: [address] [place] [id number] FOR RECORDS PERTAINING TO PATIENTS WHO ARE OR HAVE BEEN ENROLLED IN A CHEMICAL DEPENDENCY/SUBSTANCEABUSE PROGRAM, SOME INFORMATION MAY BE OMITTED. This clinical summary was aggregated from multiple sources. Caution should be exercised in using it in the provision of clinical care. This summary normalizes information from multiple sources, and as a consequence, information in this document may materially change the coding, format and clinical context of patient data. In addition, data may be omitted in some cases. CLINICAL DECISIONS SHOULD BE BASED ON THE PRIMARY CLINICAL RECORDS. [facility]. provides no warranty or guarantee of the accuracy or completeness of information in this document.
[2024-03-29] MEDS: 0.9 % SODIUM CHLORIDE 500 ML 50 ML IV (09:14)
[2024-03-29 11:46] VITALS: BP 94/50; PULSE 72; TEMP 36.3; O2SAT 98
[2024-03-29 12:01] VITALS: BP 107/56; PULSE 75; O2SAT 98
[2024-03-29 12:16] VITALS: BP 126/59; PULSE 71; O2SAT 100
== END 2024-03-29 12:16 | disposition home or self-care (01) ==
PROVIDERS: PCP Family Medicine; Visit Provider Surgery
PROC: (CPT G0105; principal; 2024-03-29 10:00)
DX: Z12.11 Encounter for screening for malignant neoplasm of colon (principal); Q43.8 Other specified congenital malformations of intestine; E78.5 Hyperlipidemia, unspecified; Z80.0 Family history of malignant neoplasm of digestive organs
CPT/HCPCS: G0105; J2371; J2704